=== PATIENT | female | born 1985 | race Caucasian/White ===

== ENCOUNTER 2017-06-02 10:45 | Outpatient (CLI) | payer OTHER ==
--- NOTE | 2017-06-02 12:20 | ULT ---
OB ULTRASOUND: Date: 06/02/17 HISTORY: patient. Evaluate for anatomy, size and dates. COMPARISON: None. TECHNIQUE: Sagittal and transverse imaging of gravid uterus performed. FINDINGS: Cervix measures 4.2 cm. Anterior placenta. No previa. presentation is transverse. heart t ones with a rate between 130-147 beats/minute. Biometry: BPD: 3.94 cm, 18 weeks/0 days HC: 16.08 cm, 18 weeks/6 days AC: 13.18 cm, 18 weeks/5 days Average age by sonography is 18 weeks/4 days. Estimated delivery date is 10/30/2017. Estimated weight is 253 gm. Umbilical Artery Resistive Index: At cord insertion, resistive index is 0.51. SD ratio is 2.03. Peak systolic velocity is 19.7 cm/secon d. End-diastolic velocity is 9.7 cm/second. Additional measurements of the umbilical artery were not made. Survey: The following structures are well visualized and are normal in appearance: Cerebellum, lateral ventr icle, face, nose/lips, three vessel cord, bladder, and kidneys. Limited evaluation of cord insertion, spine, and stomach. IMPRESSION: 1. Single intrauterine gestation with heart tones. Average age by sonography is 18 weeks/4 day s. 2. survey as above. Follow-up imaging can be performed at 20 weeks to complete the surve y. POS: [facility]
== END 2017-06-02 10:46 | disposition home or self-care (01) ==
LOC: ULT 10:45
PROVIDERS: ATTEND Family Medicine
DX: Z34.92 Encounter for supervision of normal pregnancy, unspecified, second trimester (principal); Z3A.18 18 weeks gestation of pregnancy
CPT/HCPCS: 76805

== ENCOUNTER 2017-10-25 05:30 | Inpatient (IN) | payer OTHER ==
[2017-10-25] MEDS ORDERED: Promethazine HCl 25 MG/ML VIAL IM PRN ×2 (07:06→09:00)
[2017-10-25] MEDS ORDERED: Ibuprofen 800 MG TAB PO PRN (07:06)
[2017-10-25] MEDS ORDERED: LR / Pitocin 40 units/1000 ml 1,000 ML IV PRN (07:06)
[2017-10-25] MEDS ORDERED: LR 500 ML/Oxytocin 10 units 500 ML IV SCH (07:06)
[2017-10-25] MEDS ORDERED: Ondansetron HCl/PF 4 MG/2 ML Vial IVP PRN ×3 (07:06→22:41)
[2017-10-25] MEDS ORDERED: HYDROcodone/Acetaminophen 5/325 mg Tablet PO PRN ×2 (07:06→22:41)
[2017-10-25] MEDS ORDERED: Lidocaine 1% (PF) 30 ML VIAL SC PRN (07:06)
[2017-10-25] MEDS ORDERED: Misoprostol 200 MCG TAB PR PRN (07:06)
[2017-10-25] MEDS ORDERED: Acetaminophen 500 MG TAB PO PRN (07:06)
[2017-10-25] MEDS: Lactated Ringer's 1,000 ML IV SCH ×3 (07:23→14:20)
[2017-10-25 07:41] LABS: Hemoglobin 11.7 g/dL (12.0-16.0); Mean Corpuscular HGB CONC 34.9 g/dL (32.0-36.0); Mean Corpuscular Hemoglobin 31.5 pg (27.0-31.0); Mean Corpuscular Volume 90.1 fl (81.0-99.0); Mean Platelet Volume 8.9 fL (7.4-10.4); Platelet Count 133 thou/uL (130-400); RBC Distribution Width 13.1 % (11.5-14.5); White Blood Cell (WBC) Count 7.3 thou/uL (4.8-10.8)
[2017-10-25] MEDS ORDERED: DISCONTINUE ALL PREVIOUS NARCOTICS FS SCH (07:45)
[2017-10-25 07:53] VITALS: BMI 27.4
[2017-10-25 08:15] LABS: Syphilis Antibody Nonreactive (Nonreactive); Syphilis Antibody Index 0.02 S/CO (<1.00 Non-Reactive)
[2017-10-25 08:18] LABS: HBSAg Index 0.15 S/CO (0-0.99); Hep B Surf Ag Non-Reactive S/CO (NonReactive)
[2017-10-25] MEDS: Bupivacaine 0.5% 20 ML, fentaNYL Citrate/PF 400 MCG in Sodium Chloride 0.9% 72 ML EPIDURAL SCH ×2 (08:51→16:39)
[2017-10-25] MEDS ORDERED: Acetaminophen 325 MG TAB PO PRN (09:00)
[2017-10-25] MEDS ORDERED: ePHEDrine/0.9% NaCl/PF SYRINGE 50 mg/10 ml SLOW IVP PRN (09:00)
[2017-10-25] MEDS ORDERED: Eucerin (Mineral Oil/Petrolatum,White) 30 gm Jar TOP PRN (09:00)
[2017-10-25] MEDS ORDERED: Communication Order-Pharmacy FS SCH (09:00)
[2017-10-25] MEDS ORDERED: Fentanyl 4mcg/Marcaine 0.1% Cassette 100 ML EPIDURAL SCH (09:00)
[2017-10-25] MEDS ORDERED: Naloxone HCl 0.4 mg/ml Vial IVP PRN ×2 (09:00)
[2017-10-25] MEDS ORDERED: diphenhydrAMINE 50 MG/ML VIAL IVP PRN (09:00)
[2017-10-25] MEDS ORDERED: Lactated Ringer's 500 ML IV PRN (09:00)
[2017-10-25] MEDS: LR 500 ML/Oxytocin 10 units 500 ML IV SCH (09:51)
[2017-10-25] MEDS ORDERED: Lanolin Ointment 7 GM TUBE TOP PRN (22:41)
[2017-10-25] MEDS ORDERED: Preparation H Ointment 28 GM TUBE PR PRN (22:41)
[2017-10-25] MEDS ORDERED: Acetaminophen/Codeine 30-300mg Tablet PO PRN (22:41)
[2017-10-25] MEDS ORDERED: Milk Of Magnesia 30 ML UDCUP PO PRN (22:41)
[2017-10-25] MEDS ORDERED: Bisacodyl 10 MG SUPP PR PRN (22:41)
[2017-10-25] MEDS ORDERED: Benzocaine/Menthol 20-0.5% 60 ML CAN TOP PRN (22:41)
[2017-10-25] MEDS ORDERED: diphenhydrAMINE 25 MG CAP PO PRN (22:41)
[2017-10-25] MEDS ORDERED: traMADol HCl 50 MG TAB PO PRN (22:41)
[2017-10-25] MEDS ORDERED: LR / Pitocin 40 units/1000 ml 1,000 ML IV SCH (22:45)
[2017-10-26] MEDS ORDERED: Ibuprofen 800 MG TAB PO SCH (06:00)
[2017-10-26] MEDS: Ibuprofen 800 MG TAB PO SCH ×2 (06:13→15:05)
[2017-10-26] MEDS: LR 500 ML/Oxytocin 10 units 500 ML IV SCH (08:05)
[2017-10-26] MEDS: Lactated Ringer's 1,000 ML IV SCH ×2 (08:05→15:07)
[2017-10-26] MEDS ORDERED: Prenatal Vitamin 1 TAB PO SCH (09:00)
[2017-10-26] MEDS ORDERED: Docusate Calcium (SURFAK) 240 MG CAP PO SCH ×2 (09:00)
[2017-10-26] MEDS ORDERED: Bupivacaine 0.25% HCL 30 ML VIAL ONE (09:00)
[2017-10-26] MEDS: Ferrous Sulfate 325 MG TAB PO SCH ×2 (09:15→15:34)
[2017-10-26 17:40] VITALS: BP 115/60; TEMP 98.8
== END 2017-10-26 18:34 | disposition home or self-care (01) | DRG 775 ==
LOC: L&D 06:23 → 3SW 21:00 → 3SE 10-26 06:53
PROVIDERS: ADMIT Family Medicine; ATTEND Family Medicine
PROC: 10D07Z6 Extraction of Products of Conception, Vacuum, Via Natural or Artificial Opening (ICD-10-PCS; principal; 2017-10-25)
PROC: 10907ZC Drainage of Amniotic Fluid, Therapeutic from Products of Conception, Via Natural or Artificial Opening (ICD-10-PCS; 2017-10-25)
PROC: 3E033VJ Introduction of Other Hormone into Peripheral Vein, Percutaneous Approach (ICD-10-PCS; 2017-10-25)
DX: O26.23 Pregnancy care for patient with recurrent pregnancy loss, third trimester (principal); O63.1 Prolonged second stage (of labor); Z37.0 Single live birth; Z3A.39 39 weeks gestation of pregnancy
CPT/HCPCS: 51702; 85027; 86780; 87340; J2001; J3010; J3490; J7050; J7120; S0020

== ENCOUNTER 2018-10-10 13:08 | Outpatient (CLI) | payer OTHER ==
--- NOTE | 2018-10-10 13:30 | RAD ---
FRadiograph chest 2 views: HISTORY: 33-year-old female with active TB test. Tuberculosis exposure. FINDINGS: Lungs are clear. No cavitary lesion or infiltrate. Meagan and cardiomediastinal silhouette are normal. No pleural effusion or pneumothorax. IMPRESSION: Normal. No evidence of active tuberculosis.
== END 2018-10-10 13:09 | disposition home or self-care (01) ==
LOC: BICRAD 13:08
PROVIDERS: ATTEND Family Medicine
DX: R76.12 Nonspecific reaction to cell mediated immunity measurement of gamma interferon antigen response without active tuberculosis (principal)
CPT/HCPCS: 71046

== ENCOUNTER 2019-03-16 08:15 | Outpatient (CLI) | payer OTHER ==
--- NOTE | 2019-03-16 10:41 | MRI ---
MRI OF THE LUMBAR SPINE WITHOUT CONTRAST: DATE: 03/16/2019. COMPARISON: None available. HISTORY: Low back pain bilaterally with left-sided sciatica. TECHNIQUE: Multiplanar multisequence MRI imaging of the lumbar spine provided without contrast. FINDINGS: Assuming 5 lumbar-type vertebral bodies, the conus medullaris terminates at the T12-L1 level. The sagittal STIR imaging demonstrates no focal area of osseous marrow edema. There is no anterolisthesis or retrolisthesis within the lumbar spine. T12-L1: There is no central canal or neural foraminal stenosis. L1-2: There is no central canal or neural foraminal stenosis. L2-3: No central canal or neural foraminal stenosis. L3-4: No central canal or neural foraminal stenosis. L4-5: No central canal or neural foraminal stenosis. L5-S1: There is disk space narrowing and disk desiccation. There is a central/left paracentral christopher lar tear with an associated central/left paracentral disk protrusion which causes mild central canal stenosis with a moderate degree of left lateral recess stenosis. There is mild facet hypertrophy wit h no significant neural foraminal stenosis bilaterally. The imaged retroperitoneal structures demonstrate no acute findings. IMPRESSION: At the L5-S1 level, there is disk space narrowing, disk desiccation, and a central/left paracentral d isk protrusion causing left lateral recess stenosis. POS: [facility]
== END 2019-03-16 08:16 | disposition home or self-care (01) ==
LOC: BICMRI 08:15
PROVIDERS: ATTEND Family Medicine
DX: M54.42 Lumbago with sciatica, left side (principal); M51.27 Other intervertebral disc displacement, lumbosacral region; M48.07 Spinal stenosis, lumbosacral region
CPT/HCPCS: 72148

== ENCOUNTER 2020-12-04 13:45 | Outpatient (CLI) | payer OTHER | END 2020-12-04 13:46 | disposition home or self-care (01) | LOC: BICRAD 13:45 | PROVIDERS: ATTEND Family Medicine | DX: R07.89 Other chest pain (principal) | CPT/HCPCS: 71046 ==

== ENCOUNTER 2022-06-18 14:32 | Outpatient (CLI) | payer BC | END 2022-06-18 14:33 | disposition home or self-care (01) | LOC: BICRAD 14:32 | PROVIDERS: ATTEND Family Medicine | DX: M54.6 Pain in thoracic spine (principal) | CPT/HCPCS: 72072 ==

== ENCOUNTER 2024-05-25 08:23 | Outpatient (CLI) | payer BC | END 2024-05-25 08:24 | disposition home or self-care (01) | LOC: BICRAD 08:23 | PROVIDERS: ATTEND Family Medicine | DX: S92.901A Unspecified fracture of right foot, initial encounter for closed fracture (principal); M18.11 Unilateral primary osteoarthritis of first carpometacarpal joint, right hand; M21.171 Varus deformity, not elsewhere classified, right ankle; M20.11 Hallux valgus (acquired), right foot ==

== ENCOUNTER 2025-03-19 10:06 | Outpatient (CLI) | payer BC | END 2025-03-19 10:07 | disposition home or self-care (01) | LOC: BICRAD 10:06 | PROVIDERS: ATTEND Nurse Practitioner Family | DX: S69.92XA Unspecified injury of left wrist, hand and finger(s), initial encounter (principal) ==